=== PATIENT | female | born 1955 | race Caucasian/White ===

== ENCOUNTER 2019-09-07 16:36 | Emergency (ER) | payer BC ==
--- OUTSIDE RECORDS SUMMARY | 2019-09-07 16:42 | XMS REPORT | Continuity of Care Document ---
:1955 External Reference #:[id number] Author Name Maria Teresa Malloy M.D. 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 Onset: 02/16/2016 Taking medication Chanel Whitehead M.D. Onset: 02/16/2016 Vitamin D deficiency Chanel Whitehead M.D. Onset: 02/16/2016 Hyperlipidemia screening Chanel Whitehead M.D. Onset: 02/16/2016 Encounter for screening for other Chanel Whitehead M.D. Onset: 02/16/2016 metabolic disorders Urgent desire to urinate Chanel Whitehead M.D. Onset: 02/16/2016 Hypothyroidism Chanel Whitehead M.D. Onset: 02/16/2016 Gastroesophageal reflux disease Chanel Whitehead M.D. Onset: 02/16/2016 Cellulitis of left toe Chanel Whitehead M.D. Onset: 03/14/2016 Hyperlipidemia Chanel Whitehead M.D. Onset: 03/09/2016 Elevated blood-pressure reading Chanel Whiteehad M.D. Onset: 07/02/2016 without diagnosis of hypertension Encounter for other preprocedural Chanel Whitehead M.D. 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 Onset: 08/06/2016 bronchus Abnormal glucose level Chanel Whitehead M.D. Onset: 12/10/2016 Constipation Chanel Whitehead M.D. Onset: 12/18/2016 Acute sinusitis Chanel Whitehead M.D. Onset: 01/31/2017 Cough Chanel Whitehead M.D. Onset: 01/31/2017 Acute bronchitis Chanel Whitehead M.D. Onset: 01/31/2017 Paroxysmal atrial fibrillation Adarsh Cullen M.D., Onset: 05/30/2017 [facility] Edema Adarsh Cullen M.D., Onset: 05/30/2017 [facility] Influenza due to Influenza A virus Chanel Whitehead M.D. Onset: 07/11/2017 Long-term current use of anticoagulant Adarsh Cullen M.D., Onset: [facility] Type 2 diabetes mellitus Chanel Whitehead M.D. Onset: 03/17/2018 Other specified abnormal immunological Chanel Whitehead M.D. Onset: 05/09/2018 findings in serum Mixed hyperlipidemia Camron Rios MD Onset: 02/16/2019 Screening for malignant neoplasm of Niecy Lopez MD Onset: 02/17/2019 colon Female stress incontinence Maria Teresa Malloy M.D. Onset: 06/30/2019 Overactive bladder Maria Teresa Malloy M.D. Onset: 07/23/2019 Social History Type Date Description Comments Sex Unknown Tobacco Use Start: Unknown Never Smoked Cigarettes Smokeless Tobacco Never Used Smokeless Tobacco ETOH Use Denies alcohol use Recreational Drug Use Denies Drug Use Tobacco Use Start: Unknown Patient has never smoked Smoking Status Reviewed: 07/10/19 Patient has never smoked Exercise Type/Frequency Exercises sporadically walking Allergies, Adverse Reactions, Alerts Active Allergies Reaction Severity Comments Date Gaddolineum IV Contrast Throat Swelled shut Severe 02/16/2016 Gallium 03/11/2016 Lobster 01/31/2017 Dronedarone Hydrochloride 05/21/2017 Amiodarone because patient has 05/30/2017 pulmonary fibrosis Sotalol fluid retention and 05/30/2017 weight gain Flecainide dizziness 05/30/2017 Penicillin per 06/17/2017 Inactive Allergies NKDA 02/16/2016 Medications Active Medications SIG Qnty Indications Ordering Date Provider Ashlynjes 1 by mouth every 30tabs N32.81 Mellissa, 07/23/2019 50mg day Trent Morel Tablets ER 24HR Coq10 1 by mouth every Chanel Whitehead, 03/17/2018 200mg Capsules day M.D. Black Cuman Oil 1 capsule daily Chanel Whitehead, 03/17/2018 (OTC) M.DChristine Capsule Oregano Oil 1-2 capsules daily Chanel Whitehead, 07/08/2017 M.DChristine Flax Seed Oil 1tbsp. daily by Chanel Whitehead, 06/25/2017 mouth MVioleta Manuka Honey 1 tsp daily by Chanel Whitehead, 06/25/2017 mouth M.Jadon Eliquis 1 tab by mouth 180tabs Subhash, 05/30/2017 5mg Tablets twice a day Adarsh Claire M.D., [facility] Atorvastatin Calcium 1 by mouth every Unknown day 10mg Tablets Pepcid take 1 tablet once Unknown 40mg Tablets a day. Blood Sugar Balance 2 tabs in the Unknown morning and pm Tablets Omeprazole 1 by mouth every Unknown 40mg day Capsules DR Negin De Leon takes as needed for Unknown pain and inflammation Ivc Therapy once a month Unknown Amitriptyline HCL 1 tablet 1 hours Unknown prior to bedtime 10mg Tablets Fluticasone 1 spray each nare Unknown Propionate Nasal daily [place] 50mcg/Act Suspension Vitamin C 1 by mouth bid Unknown 1000mg Tablets Tumeric 500 MGS one or two daily Unknown [place] Thyroid 1/2 tab by mouth 45tabs Chanel Whitehead, 15mg every morning M.D. Tablets Hydrocodone/Chlorphe take 3-4ml by mouth Unknown n ER every day Magnesium Oxide 2 by mouth daily 180tabs Chanel Whitehead, 400mg M.D. Tablets Onetouch Ultrasoft Test qd And ac Unknown Lancets Misc Onetouch Ultra Blue 300units Unknown Strips Vitamin D 3 gtt daily Unknown Liquid History Medications Home Cpap + 10 cm h2o qhs Liyah, 03/16/2019 - Supplies: Shashi Rey MD 06/30/2019 Tubbing, Head Gear Suprep Bowel Complete first 354ml Z12.11 Niecy Lopez MD 02/17/2019 - Prep Kit part of prep the Unknown evening before 17.5-3.13-1.6GM/ procedure and 177ML Solution second part at least 4 hours before your procedure time Gas Relief take 1 tab day 2units Z12.11 Niecy Lopez MD 02/17/2019 - before colonoscopy 03/26/2019 80mg Chewtabs and 1 tab day of colonoscopy early in the am Immunizations CPT Code Status Date Vaccine Lot # [id number] Given Unknown Influenza Virus Vaccine, Quadrivalent, 36 Mos+, .5ML Vital Signs Date Vital Result Comment 07/23/2019 4:06pm BP Systolic 132 mmHg BP Diastolic 75 mmHg Body Temperature 97.8 F Heart Rate 88 /min Respiratory Rate 17 /min Height 68 inches 5'8" Weight 243.00 lb Pain Level 0 BMI (Body Mass Index) 36.9 kg/m2 BSA (Body Surface Area) 2.22 m2 [place] body weight in kilograms 63 kg O2 % BldC Oximetry 100 % 06/30/2019 1:57pm BP Systolic 115 mmHg BP Diastolic 66 mmHg Body Temperature 96.9 F Tympanic Heart Rate 103 /min Respiratory Rate 16 /min Height 68 inches 5'8" Weight 243.38 lb Pain Level 0 BMI (Body Mass Index) 37.0 kg/m2 BSA (Body Surface Area) 2.22 m2 [place] body weight in kilograms 63 kg O2 % BldC Oximetry 98 % Results Description No Information Available Procedures Date Code Description Status 07/23/2019 41821 Bladder Catheterization Completed 06/30/2019 91964 Measurement Post Voiding Residual Urine By Completed Ultrasound,Non-Imaging 03/04/2019 93523 Colonoscopy With Polypectomy Completed 03/04/2019 85851 EGD With Biopsy Completed 05/20/2015 [id number] Mammogram Completed 10/18/2014 [id number] Colonoscopy Completed 05/20/2014 [id number] Colonoscopy Completed 05/20/2013 799488051 Bone Mineral Density Test Completed 10/03/2010 [id number] Colonoscopy Completed 03/18/2007 50779818 Colonoscopy Completed Medical Devices Description No Information Available Encounters Type Date Location Provider Dx Diagnosis Office Visit 07/23/2019 Urology Maria Teresa Malloy, N39.3 Stress incontinence 4:00p M.D. (female) (male) N32.81 Overactive bladder Office Visit 06/30/2019 1:45p Urology Maria Teresa Malloy, N39.3 Stress incontinence M.D. (female) (male) Office Visit 03/26/2019 2:20p GI Niecy Lopez MD K29.50 Unspecified chronic gastritis without bleeding K44.9 Diaphragmatic hernia without obstruction or gangrene R05 Cough Z86.010 Personal history of colonic polyps Office Visit 03/05/2019 4:00p Pulmonology Shashi Pelletier MD R05 Cough G47.33 Obstructive sleep apnea (adult) (pediatric) Office Visit 02/17/2019 3:00p GI Niecy Lopez MD Z12.11 Encounter for screening for malignant neoplasm of colon R05 Cough Assessments Date Code Description Provider 07/23/2019 N39.3 Stress incontinence (female) (male) Maria Teresa Malloy M.D. 07/23/2019 N32.81 Overactive bladder Maria Teresa Malloy M.D. 06/30/2019 N39.3 Stress incontinence (female) (male) Maria Teresa Malloy M.D. 03/26/2019 K29.50 Unspecified chronic gastritis without Niecy Lopez MD bleeding 03/26/2019 K44.9 Diaphragmatic hernia without obstruction Niecy Lopez MD or gangrene 03/26/2019 R05 Cough Niecy Lopez MD 03/26/2019 Z86.010 Personal history of colonic polyps Niecy Lopez MD 03/05/2019 R05 Cough Shashi Pelletier MD 03/05/2019 G47.33 Obstructive sleep apnea syndrome Shashi Pelletier MD 03/04/2019 Z12.11 Encounter for screening for malignant Niecy Lopez MD neoplasm of colon 03/04/2019 D12.2 Benign neoplasm of ascending colon Niecy Lopez MD 03/04/2019 K31.89 Other diseases of stomach and duodenum Niecy Lopez MD 02/17/2019 Z12.11 Encounter for screening for malignant Niecy Lopez MD neoplasm of colon 02/17/2019 R05 Cough Niecy Lopez MD Plan of Treatment Future Appointment(s):09/03/2019 3:30 pm - Maria Teresa Malloy M.D. at Urology Functional Status Description No Information Available Mental Status Description No Information Available Referrals Refer to Dr Reason for Referral Status Appt Date Maria Teresa Malloy M.D. urinary incontinence Closed 06/30/2019 [address] [address] [phone] Miguel Felton MD Unspecified chronic gastritis without bleeding. Sent 06/15/2019 Refer for high resolution manometry/pH impedance study [address] [place] [phone] Nixon El MD [place] Patient Declined 04/27/2019 [address] [place] [address] [phone] Camron Rios MD Eshohageal manometry PH impedence studies. Patient Declined [address] [place] [address] [phone]
--- OUTSIDE RECORDS SUMMARY | 2019-09-07 16:42 | XMS REPORT | Continuity of Care Document ---
:1955 External Reference #:[id number] Author Name Maria Teresa Malloy M.D. 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 Onset: 03/09/2016 Elevated blood-pressure reading Chanel Whitehead M.D. Onset: 07/02/2016 without diagnosis of hypertension Encounter for other preprocedural Chanel Whitehead M.D. 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 Onset: 08/06/2016 bronchus Abnormal glucose level Chanel Whitehead M.D. Onset: 12/10/2016 Constipation Chanel Whitehead M.D. Onset: 12/18/2016 Acute sinusitis Chanel Whitehead M.D. Onset: 01/31/2017 Cough Chanel Whitehead M.D. Onset: 01/31/2017 Acute bronchitis Chanel Whitehead M.D. Onset: 01/31/2017 Paroxysmal atrial fibrillation Adarsh Cullen M.D., Onset: 05/30/2017 [facility] Edema Adarhs Cullen M.D., Onset: 05/30/2017 [facility] Influenza due to Influenza A virus Chanel Whitehead M.D. Onset: 07/11/2017 Long-term current use of anticoagulant Adarsh Cullen M.D., Onset: [facility] Type 2 diabetes mellitus Chanel Whitehead [...] Medications SIG Qnty Indications Ordering Date Provider Rossicarlos alberto 1 by mouth every 30tabs N32.81 Mellissa, [...] Tablets twice a day Adarsh Claire M.D., [facility] Atorvastatin Calcium 1 by mouth every [...] spray each nare Unknown Propionate Nasal daily [place] 50mcg/Act Suspension Vitamin C 1 by mouth bid Unknown 1000mg Tablets Tumeric 500 MGS one or two daily Unknown [place] Thyroid 1/2 tab by mouth 45tabs Chanel Whitehead, 15mg every morning M.D. Tablets Hydrocodone/Chlorphe take 3-4ml by mouth Unknown n ER every day Magnesium Oxide 2 by mouth daily 180tabs Chanel Whitehead 400mg M.D. Tablets Onetouch Ultrasoft Test qd [...] CPT Code Status Date Vaccine Lot # [id number] Given Unknown Influenza Virus Vaccine, Quadrivalent, 36 Mos+, .5ML Vital Signs Date Vital Result Comment 07/23/2019 4:06pm BP Systolic 132 mmHg BP Diastolic 75 mmHg Body Temperature 97.8 F Heart Rate 88 /min Respiratory Rate 17 /min Height 68 inches 5'8" Weight 243.00 lb Pain Level 0 BMI (Body Mass Index) 36.9 kg/m2 BSA (Body Surface Area) 2.22 m2 May body weight in kilograms 63 kg O2 % BldC Oximetry 100 % 06/30/2019 1:57pm BP Systolic 115 mmHg BP Diastolic 66 mmHg Body Temperature 96.9 F Tympanic Heart Rate 103 /min Respiratory Rate 16 /min Height 68 inches 5'8" Weight 243.38 lb Pain Level 0 BMI (Body Mass Index) 37.0 kg/m2 BSA (Body Surface Area) 2.22 m2 May body weight in kilograms 63 kg O2 % BldC Oximetry 98 % Results Description No Information Available Procedures Date Code Description Status 07/23/2019 14460 Bladder Catheterization Completed 06/30/2019 30361 Measurement Post Voiding Residual Urine By Completed Ultrasound,Non-Imaging 03/04/2019 88445 Colonoscopy With Polypectomy Completed 03/04/2019 35260 EGD With Biopsy Completed 05/20/2015 [id number] Mammogram Completed 10/18/2014 [id number] Colonoscopy Completed 05/20/2014 12500950 Colonoscopy Completed 05/20/2013 814206743 Bone Mineral Density Test Completed 10/03/2010 [id number] Colonoscopy Completed 03/18/2007 47569551 Colonoscopy Completed Medical Devices Description No Information [...] Description No Information Available Referrals Refer to Reason for Referral Status Appt Date Created Maria Teresa Malloy M.D. urinary incontinence Closed 06/30/2019 [address] [place] [place] [id number] [phone] Miguel Felton MD Unspecified chronic gastritis without bleeding. Sent 06/15/2019 Refer for high resolution manometry/pH impedance study [address] [place] [phone] Nixon El MD [place] Patient Declined 04/27/2019 [address] [place] [address] [phone] Camron Rios MD Eshohageal manometry PH impedence studies. Patient Declined [address] [place] [address] [phone]
--- OUTSIDE RECORDS SUMMARY | 2019-09-07 16:42 | XMS REPORT | Continuity of Care Document ---
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 Problems Description No Information Available Social History Type Date Description Comments Sex Unknown ETOH Use Denies alcohol use Tobacco Use Start: Unknown Patient has never smoked Allergies, Adverse Reactions, Alerts Active Allergies Reaction Severity Comments Date Gadolinium 07/15/2018 lobster 07/15/2018 Multaq 07/15/2018 Amiodarone 07/15/2018 Sotalol 07/15/2018 Flecainide 07/15/2018 Penicillin 07/15/2018 Medications Active Medications SIG Qnty Indications Ordering Provider Date Atorvastatin Calcium 1 by mouth 90tabs Chava Reyes MD 04/30/2019 10mg every day Tablets Muco Coccinum 1 Every Other Unknown Week Pam-G-Qsutode Forte 6000u Unknown 2000Unt/0.04ML Liquid Super Bio-Curcumin 400 MG Daily Unknown Florastor 1 by mouth Unknown 250mg Capsules twice a day [place] Elderberry Unknown 50mg/5ML Syrup Fluconazole 1 by mouth Unknown 200mg Tablets every day x 14 days Senna Laxative 2 tab by mouth Unknown 8.6mg every day prn Tablets [place] Thyroid 1/2 tab every 45tabs Chava Reyes MD 15mg am Tablets Hydrocodone 2 ml by mouth Unknown Polistirex/Chlorphenir every day amine Polistirex 10-8mg/5ML [place] Magnesium Oxide 2 by mouth Unknown 400mg every day Capsules Vitamin D 3 gtts daily Unknown 400Unit/ML Liquid Eliquis twice a day Unknown 5mg Tablets [place] Oral 1 tbs daily Unknown Flaxseed Oil 1 tbs daily Unknown Oil Oil Of Oregano Unknown 1500mg Capsules Vitamin C 1 tab bid Unknown 1000mg Tablets Black Cuman Oil 1 cap in am and Unknown 1 in pm Coq10 Maximum Strength 1 by mouth Unknown every day 400mg Capsules Immunizations Description No Information Available Vital Signs Date Vital Result Comment 07/21/2019 2:49pm BP Systolic 127 mmHg BP Diastolic 78 mmHg Heart Rate 87 /min Height 65.5 inches 5'5.50" 04/30/2019 3:30pm BP Systolic 120 mmHg BP Diastolic 64 mmHg Heart Rate 85 /min Respiratory Rate 16 /min Height 65.5 inches 5'5.50" Weight 244.00 lb BMI (Body Mass Index) 40.0 kg/m2 Results Test Acquired Facility Test Result H/L Range Note Date Glycohemoglobin 04/25/2019 [facility] Glycohemoglobin 6.3 % Normal 4.2-6.3 1, [address] (A1c) [place] [address] [phone] eAG 134 mg/dL CBS W/Automated 04/25/2019 [facility] White 7.2 K/uL Normal 3.1-10.[address] [place] [address] Count [phone] Red Blood Count 4.20 M/uL Normal 3.90-5.40 Hemoglobin 13.1 gm/dL Normal 11.6-15.8 Hematocrit 39.6 % Normal 36.0-46.1 Mean Cell Volume 94.3 fl Normal 80.9-99.0 Mean Corpuscular HGB 31.2 pg Normal 25.9-32.7 Mean Corpuscular HGB Conc 33.1 g/dL Normal 30.8-34.3 Platelet Count 245 K/uL Normal 155-360 Red Cell Distri Width SD 43.8 fl Normal 36-47 Red Cell Distri Width %CV 12.8 % Normal 11.7-14.4 Mean Platelet Volume 9.2 fl Normal 8.9-12.4 Neut% 59.4 % Normal 40.4-72.8 Lymph % 33.0 % Normal 20.0-42.0 [place] % 5.6 % Normal 4.3-13.2 Eo% 1.4 % Normal 0.0-6.6 Bas% 0.3 % Normal 0.0-1.1 Immature Grans 0.3 % Normal 0.0-5.0 NRBC % 0.0 /100WBC < 10/ 100 WBC Neut# 4.28 K/uL Normal 1.8-7.0 Lymph # 2.37 K/uL Normal 1.0-4.0 [place] # 0.40 K/uL Normal 0.3-0.9 Eos # 0.10 K/uL Normal 0.0-0.5 Baso # 0.02 K/uL Normal 0.0-0.1 Immature Grans Absolute 0.02 K/uL NRBC # 0.00 K/uL LDL Cholesterol 04/25/2019 [facility] Cholesterol 250 mg/dL High <200 [address] [place], [place] [id number] [phone] Triglycerides 122 mg/dL <150 4 HDL Cholesterol 62 mg/dL >40 5 LDL-Cholesterol 164 mg/dL < 100 6 Comprehensive 04/25/2019 [facility] Glucose 104 mg/ dL Normal 74-106 Metabolic Panel [address] [place], [place] [address] [phone] BUN 11 mg/dL Normal 7-18 Creatinine 0.8 mg/dL Normal 0.6-1.3 Glom Filtration Rate, Estimate >60 mL/min >60 If >60 mL/min >60 7 BUN/Creat 13.7 ratio Sodium 139 mmol/L Normal 136-145 Potassium 4.1 mmol/L Normal 3.5-5.1 Chloride 106 mmol/L Normal 98-107 Carbon Dioxide 30 mmol/L Normal 21-32 Anion Gap 3 mEq/L Low 8-16 Calcium 9.3 mg/dL Normal 8.5-10.1 Total Protein 7.4 g/dL Normal 6.4-8.2 Albumin 3.8 g/dL Normal 3.4-5.0 Globulin 3.6 g/dL Normal 1.9-4.3 Alb/Glob 1.1 ratio Bilirubin,Total 0.4 mg/dL Normal 0.2-1.0 Sgot/Ast 10 U/L Low 15-37 8 SGPT/Alt 18 U/L Normal 12-78 Alkaline Phosphatase 74 U/L Normal 45-117 .TSH+Free T4 04/25/2019 [facility] Thyroid Stim 1.64 Normal 0.30-4.20 ([facility] [address] Hormone uIU/mL [facility] [place] [place] [address] [phone] Free T4 0.97 ng/dL Normal 0.76-1.46 1 R73.03 (E11.9,M34.1,E78.2,E78.5,E03.9,J44.9,D50.8) 2 Elevated levels of HbA1c suggest the need for more aggressive treatment of glycemia. The [place] Diabetes [employer] recommends that a primary goal of therapy should be a HbA1c of <7% and that physicians should re-evaluate the treatment regimen in patients with HbA1c values consistently >8%. 3 Reference Guidelines*: Desirable: ........... < 200 mg/dL Borderline High: ..... 200-239 mg/dL High: ................ >= 240 mg/dL * The National Cholesterol Education Program (NCEP) 4 Reference Guidelines*: Normal: ............. < 150 mg/dL Borderline High: .... 150-199 mg/dL High: ............... 200-499 mg/dL Very High: .......... > 500 mg/dL * Source: National Cholesterol Education Program (NCEP) 5 Reference Guidelines*: Low HDL: ..... < 40 mg/dL Normal: ..... 40-60 mg/dL Desirable: ... > 60 mg/dL *The National Cholesterol Education Program(NCEP) 6 Reference Guidelines*: Optimal:........... <100 mg/dL Near Optimal....... 100-129 mg/dL Borderline High.... 130-159 mg/dL High............... 160-189 mg/dL Very High.......... >=190 mg/dL * Source: National Cholesterol Education Program (NCEP) 7 Note: Persistent reduction for 3 months or more in an eGFR <60 mL/min/1.73 m2 defines CKD. Patients with eGFR values >/=60 mL/min/1.73 m2 may also have CKD if evidence of persistent proteinuria is present. The original MDRD equation for estimated GFR is not valid for patients less than 18 years of age. Additional information may be found at www.kdoqi.org. 8 Values below the stated reference ranges of AST and ALT can be seen in normal populations. Clinical correlation is suggested. 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 M34.1 CR(E)St syndrome I48.0 Paroxysmal atrial fibrillation E78.5 Hyperlipidemia, unspecified Assessments Date Code Description Provider 07/21/2019 E03.9 Hypothyroidism, unspecified Chava Reyes MD 07/21/2019 I11.9 Hypertensive heart disease without heart failure Chava Reyes MD 07/21/2019 C34.92 Malignant neoplasm of unspecified part of left Elyn Ring, bronchus or l 07/21/2019 M34.1 CR(E)St syndrome Chava Reyes MD 07/21/2019 I48.0 Paroxysmal atrial fibrillation Chava Reyes MD 07/21/2019 E78.5 Hyperlipidemia, unspecified Codyyn MD Amy 04/30/2019 E03.9 Hypothyroidism, unspecified Chava Reyes MD 04/30/2019 I11.9 Hypertensive heart disease without heart failure Chava Reyes MD 04/30/2019 C34.92 Malignant neoplasm of unspecified part of left Elyn Ring, bronchus or l 04/30/2019 M34.1 CR(E)St syndrome Chava Reyes MD 04/30/2019 I48.0 Paroxysmal atrial fibrillation Chava Reyes MD 04/30/2019 E78.5 Hyperlipidemia, unspecified Elyn Ring, MD Plan of Treatment Future Appointment(s):08/24/2019 8:00 am - Nurse at Main Uddihd9009/01/2019 3: 15 pm - Chava Reyes MD at Main Rqjbvb6507/21/2019 - Chava Reyes MDE03.9 Hypothyroidism, zzqllqomqziX12.9 Hypertensive heart disease without heart tlgzxqdC53.92 Malignant neoplasm of unspecified part of left bronchus or lM34.1 CR(E)St lwwdzzepH43.0 Paroxysmal atrial ljbwjsslcqryY54.5 Hyperlipidemia, unspecified Functional Status Description No Information Available Mental Status Description No Information Available Referrals Description No Information Available
--- OUTSIDE RECORDS SUMMARY | 2019-09-07 16:42 | XMS REPORT | Continuity of Care Document ---
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 Problems Description No Information Available Social History [...] Muco Coccinum 1 Every Other Unknown Week [id number] Forte 6000u Unknown 2000Unt/0.04ML Liquid Super Bio-Curcumin 400 MG Daily Unknown Florastor 1 by mouth Unknown 250mg Capsules twice a day Sambucus Elderberry Unknown 50mg/5ML Syrup Fluconazole 1 by mouth Unknown 200mg Tablets every day x 14 days Senna Laxative 2 tab by mouth Unknown 8.6mg every day prn Tablets [place] Thyroid 1/2 tab every 45tabs Chava Reyes [...] Available Vital Signs Date Vital Result Comment 04/30/2019 3:30pm BP Systolic 120 mmHg BP Diastolic 64 mmHg Heart Rate 85 /min Respiratory Rate 16 /min Height 65.5 inches 5'5.50" Weight 244.00 lb BMI (Body Mass Index) 40.0 kg/m2 01/20/2019 3:19pm BP Systolic 140 mmHg BP Diastolic 88 mmHg Heart Rate 110 /min Weight 239.00 lb O2 % BldC Oximetry 99 % Results Test Acquired Date Facility Test Result H/L Range Note .TSH+Free T4 04/25/2019 [facility] Thyroid Stim < pending> 1 ([place] & [address] Hormone [facility] [place], [place] [address] [phone] Free T4 <pending> Glycohemoglobin 04/25/2019 [facility] Glycohemoglobin 6.3 % Normal 4.2-6.[address] (A1c) [place], [place] [id number] [phone] eAG 134 mg/dL CBS W/Automated 04/25/2019 [facility] White 7.2 K/uL Normal 3.1-10.[address] [place] [place] [address] Count [phone] Red Blood Count 4.20 M/uL Normal 3.90-5.40 [...] 40.4-72.8 Lymph % 33.0 % Normal 20.0-42.0 Rich % 5.6 % Normal 4.3-13.2 Eo% 1.4 % Normal 0.0-6.6 Bas% 0.3 % Normal 0.0-1.1 Immature Grans 0.3 % Normal 0.0-5.0 NRBC % 0.0 /100WBC < 10/ 100 WBC Neut# 4.28 K/uL Normal 1.8-7.0 Lymph # 2.37 K/uL Normal 1.0-4.0 Rich # 0.40 K/uL Normal 0.3-0.9 Eos # 0.10 K/uL Normal 0.0-0.5 Baso # 0.02 K/uL Normal 0.0-0.1 Immature Grans Absolute 0.02 K/uL NRBC # 0.00 K/uL LDL Cholesterol 04/25/2019 [facility] Cholesterol 250 mg/dL High <200 [address] [place], [place] [id number] [phone] Triglycerides 122 mg/dL <150 4 HDL Cholesterol 62 mg/dL >40 5 LDL-Cholesterol 164 mg/dL < 100 6 Comprehensive 04/25/2019 [facility] Glucose 104 mg/ dL Normal 74-106 Metabolic Panel [address] [place], [place] [address] [phone] BUN 11 mg/dL Normal 7-18 Creatinine 0.8 [...] 74 U/L Normal 45-117 .TSH+Free T4 04/25/2019 [facility] Thyroid Stim 1.64 Normal 0.30-4.20 ([place] & [address] Hormone uIU/mL [facility] [place] [address] [phone] Free T4 0.97 ng/dL Normal 0.76-1.46 Laboratory test 04/25/2019 [facility] Glycohemoglobin A1c <pending> finding [address] [place] [address] [phone] 1 R73.03 (E11.9,M34.1,E78.2,E78.5,E03.9,J44.9,D50.8) 2 Elevated levels of HbA1c suggest the need for more aggressive treatment of glycemia. 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
[2019-09-07 16:51] VITALS: BP 124/97
--- NOTE | 2019-09-07 17:03 | UC ---
Ear Complaint HPI - HPI Summary HPI Summary: 64-year-old woman comes in with a chief complaint of bilateral ear irritation. She reports her ears feel full. They are itchy. She had earwax fall out of her right ear canal today. Has a chronic runny nose. No yellow rhinorrhea no fevers no chills. No complaint of sore throat. - History of Current Complaint Chief Complaint: UCEar Stated Complaint: BI LAT EAR PAIN Time Seen by Provider: 09/07/19 16:55 Pain Intensity: 6 - Allergies/Home Medications Allergies/Adverse Reactions: Allergies Allergy/AdvReac Type Severity Reaction Status Date / Time Iodinated Contrast Media Allergy "Turn Verified 09/07/19 16:45 Purple" Home Medications: Home Medications Amitriptyline TAB* [Elavil TAB*] 10 mg PO BEDTIME 09/07/19 [History Confirmed ] Apixaban* [Eliquis*] 5 mg PO BID 09/07/19 [History Confirmed 09/07/19] Atorvastatin* [Lipitor*] 10 mg PO DAILY 09/07/19 [History Confirmed 09/07/19] Famotidine TAB* [Pepcid 20 MG TAB*] 20 mg PO DAILY 09/07/19 [History Confirmed 09/07/19] Mirabegron (NF) [Myrbetriq (NF)] 50 mg PO DAILY 09/07/19 [History Confirmed ] Ofloxacin 0.3% (Ear Drop)* [Floxin 0.3% OTIC.FELICIANO (Ear Drop)] 5 drop BOTH EARS BID #1 btl 09/07/19 [Rx] Thyroid,Pork [[place] Thyroid] 12.5 mg PO QAM 09/07/19 [History Confirmed ] PMH/Surg Hx/FS Hx/Imm Hx Previously Healthy: Yes Endocrine History: Hypothyroidism, Dyslipidemia GI/ History: Gastroesophageal Reflux - Surgical History Surgical History: Yes Surgery Procedure, Year, and Place: Left Lung Lower Lungectomy, 2013, [place]; ORAL SX. OBLATION OF CERVIX/EXPLORATORY SX. TWIN . TMJ SX B/L - Family History Known Family History: Positive: Non-Contributory - Social History Alcohol Use: None Substance Use Type: None Smoking Status (MU): Never Smoked Tobacco Review of Systems All Other Systems Reviewed And Are Negative: Yes Constitutional: Positive: Negative Skin: Positive: Negative Eyes: Positive: Negative ENT: Positive: Ear Ache, Nasal Discharge Respiratory: Positive: Negative Cardiovascular: Positive: Negative Motor: Positive: Negative Neurovascular: Positive: Negative Musculoskeletal: Positive: Negative Neurological/Mental Status: Positive: Negative Psychological: Positive: Negative Is Patient Immunocompromised?: No Physical Exam Triage Information Reviewed: Yes Appearance: Well-Appearing, No Pain Distress, Well-Nourished Vital Signs: Initial Vital Signs Temp 97.9 F 09/07/19 16:43 Pulse 82 09/07/19 16:43 Resp 16 09/07/19 16:43 BP 124/97 09/07/19 16:43 Pulse Ox 99 09/07/19 16:43 Vital Signs Reviewed: Yes Eye Exam: Normal Eyes: Positive: Conjunctiva Clear ENT: Positive: Nasal drainage, Other - Patient has mild test palpation with palpation of the right tragus. There is debris in the right ear canal. The TMs are clear. They do not appear to be bulging at this time. Neck: Positive: Supple Respiratory: Positive: No respiratory distress Musculoskeletal: Positive: Strength Intact, ROM Intact Neurological: Positive: Alert Psychological: Positive: Age Appropriate Behavior Skin Exam: Normal Ear Complaint Course/Dx - Course Course Of Treatment: We'll treat for right otitis externa. Rhinorrhea is not green no obvious sinusitis at this time. Patient reports she has seen ENT to include Dr. El in the past and also an ENT in [place] and she will follow-up with ENT if not completely improved. - Differential Dx/Diagnosis Provider Diagnosis: Otitis externa Discharge ED - Sign-Out/Discharge Documenting (check all that apply): Patient Departure All imaging exams completed and their final reports reviewed: No Studies - Discharge Plan Condition: Stable Disposition: HOME Prescriptions: Ofloxacin 0.3% (Ear Drop)* [Floxin 0.3% OTIC.FELICIANO (Ear Drop)] 5 drop BOTH EARS BID #1 btl Patient Education Materials: Otitis Externa (ED) Referrals: Chava Reyes MD [Primary Care Provider] - Nixon El MD [Medical Doctor] - Jimi Whyte MD [Medical Doctor] - Michael Lovell MD [Medical Doctor] - Additional Instructions: FOLLOW UP WITH ENT IF NOT COMPLETELY IMPROVED. GET REEVALUATED IF NOT IMPROVING OR WORSE OR ANY QUESTIONS OR CONCERNS. - [place] Disposition and Condition Condition: STABLE Disposition: Home
[2019-09-08 11:28] LABS: Hepatitis C Antibody Negative (Negative)
== END 2019-09-07 17:30 | disposition home or self-care (01) ==
LOC: UCCORT 16:36
DX: H60.93 Unspecified otitis externa, bilateral (principal); R09.89 Other specified symptoms and signs involving the circulatory and respiratory systems; E03.9 Hypothyroidism, unspecified; I10 Essential (primary) hypertension; Z79.890 Hormone replacement therapy; Z91.041 Radiographic dye allergy status
CPT/HCPCS: 36415; 86803; 99212; G0463

== ENCOUNTER 2019-09-11 18:30 | Emergency (ER) | payer BC ==
[2019-09-11 18:48] VITALS: BP 131/65
--- NOTE | 2019-09-11 19:03 | UC ---
Lower Extremity/Ankle HPI - HPI Summary HPI Summary: 64 yo woman with a hx of past lung cancer, atrial fibrillation post ablation, who stopped apixaban about 2 months ago for a procedure and she was not advised to start it again. She awoke today with a painful, swollen left leg and comes for assessment. 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 No hx of trauma. - History of Current Complaint Chief Complaint: UCLowerExtremity Stated Complaint: LEFT LEG/FOOT COMPLAINT Time Seen by Provider: 09/11/19 18:50 Hx Obtained From: Patient Onset/Duration: Sudden Onset, Lasting Hours Pain Intensity: 6 Aggravating Factor(s): Standing, Ambulation Alleviating Factor(s): Rest Able to Bear Weight: Yes - Risk Factors Gout Risk Factors: Age Over 40 DVT Risk Factors: Malignancy - hx of CA lung, Family Hx of Clotting Disorder, Other: - sedentary lifestyle Septic Arthritis Risk Factor: Negative - Allergies/Home Medications Allergies/Adverse Reactions: Allergies Allergy/AdvReac Type Severity Reaction Status Date / Time Iodinated Contrast Media Allergy "Turn Verified 09/11/19 18:38 Purple" Home Medications: Home Medications Apixaban* [Eliquis*] 5 mg PO BID 09/07/19 [History Confirmed 09/11/19] Ofloxacin 0.3% (Ear Drop)* [Floxin 0.3% OTIC.FELICIANO (Ear Drop)] 5 drop BOTH EARS BID #1 btl 09/07/19 [Rx Confirmed 09/11/19] Thyroid,Pork [[place] Thyroid] 12.5 mg PO QAM 09/07/19 [History Confirmed ] PMH/Surg Hx/FS Hx/Imm Hx - Additional Past Medical History Additional PMH: Connective tissue disease, past Lyme disease. Previously Healthy: No Cardiovascular History: Atrial Fibrillation - post ablation GI/ History: Gastroesophageal Reflux - Surgical History Surgical History: Yes Surgery Procedure, Year, and Place: Left Lung Lower Lungectomy, 2013, [place]; ORAL SX. OBLATION OF CERVIX/EXPLORATORY SX. TWIN . TMJ SX B/L - Family History Known Family History: Positive: Other - mother had thrombophlebitis. - Social History Occupation: Retired Lives: With Family Alcohol Use: None Substance Use Type: None Smoking Status (MU): Never Smoked Tobacco Review of Systems All Other Systems Reviewed And Are Negative: Yes Constitutional: Positive: Fatigue Skin: Positive: Negative Eyes: Positive: Negative ENT: Positive: Negative Respiratory: Positive: Negative, Cough - chronic cough x 2 years determined to be caused by reflux. Negative: Shortness Of Breath Cardiovascular: Negative: Palpitations, Chest Pain Gastrointestinal: Positive: Other - chronic reflux, recent pH study confirmed. Genitourinary: Positive: Negative Motor: Positive: Decreased ROM Musculoskeletal: Positive: Calf Tenderness, Edema, Myalgia Neurological/Mental Status: Positive: Negative Psychological: Positive: Negative Is Patient Immunocompromised?: No Physical Exam Triage Information Reviewed: Yes Appearance: Ill-Appearing, Pain Distress - mild, Obese Vital Signs: Initial Vital Signs Temp 97.6 F 09/11/19 18:41 Pulse 96 09/11/19 18:41 Resp 20 09/11/19 18:41 BP 131/65 09/11/19 18:41 Pulse Ox 99 09/11/19 18:41 Eye Exam: Normal ENT: Positive: Pharynx normal Neck: Positive: Supple, Nontender, No Lymphadenopathy Respiratory: Positive: Lungs clear, Normal breath sounds Cardiovascular: Positive: RRR, No Murmur Musculoskeletal: Positive: Edema @ - pitting edema, mild warmth and erythema from left ankle to knee. No knee or ankle pain. Mariana's negative. Mildly tender to touch Left leg visibly significantly larger than the right. Neurological Exam: Normal Neurological: Positive: Alert, Muscle Tone Normal Psychological Exam: Normal Skin Exam: Other - warmth and erythema left foreleg Lower Extremity Course/Dx - Course Course Of Treatment: given that she has not been taking apixaban, and has risk of clot, advised ER for evaluation. She chose to go by private car for evaluation. - Differential Dx/Diagnosis Differential Diagnosis/HQI/PQRI: Cellulitis, Contusion Provider Diagnosis: Leg pain, left - Physician Notifications Discussed Patient Care With: Tamika - advised [facility] ER of transfer Time Discussed With Above Provider: 19:00 Discharge ED - Sign-Out/Discharge Documenting (check all that apply): Patient Departure All imaging exams completed and their final reports reviewed: No Studies - Discharge Plan Condition: Stable Disposition: [facility] Patient Education Materials: Leg Pain (ED) Referrals: Chava Reyes MD [Primary Care Provider] - Additional Instructions: I am concerned that your leg swelling could be the result of a blood clot, and you need further evaluation to determine if this is the case. Please proceed directly to the [facility] emergency room for evaluation. - Billing Disposition and Condition Condition: STABLE Disposition: Trans Higher Lvl of Care Fac
== END 2019-09-11 19:15 | disposition short-term general hospital (02) ==
LOC: UCCORT 18:30
DX: M79.605 Pain in left leg (principal); Z91.041 Radiographic dye allergy status; I48.91 Unspecified atrial fibrillation; Z79.01 Long term (current) use of anticoagulants; R60.0 Localized edema
CPT/HCPCS: 99212; G0463